=== PATIENT | female | born 1985 | race Caucasian/White ===

== ENCOUNTER 2023-04-04 07:34 | Emergency (ER) | payer OTHER ==
[2023-04-04] MEDS ORDERED: Sodium Chloride 0.9% 10 ML Syringe FLUSH PRN (08:13)
[2023-04-04] MEDS ORDERED: Bacitracin Oint 1 GM U/D Packet TOP ONE (08:15)
[2023-04-04] MEDS ORDERED: Diphtheria,Pertussis(Acell),Tetanus Vaccine 0.5 ML Syringe IM ONE (08:15)
[2023-04-04] MEDS ORDERED: Sodium Chloride 0.9% 1,000 ML IV ONE (08:15)
[2023-04-04 08:29] LABS: BASOPHILS PERCENT AUTO 0.3 % (0.0-1.0); EOSINOPHILS PERCENT AUTO 3.9 % (1.0-3.0); HEMATOCRIT 41.3 % (37.0-47.0); HEMOGLOBIN 14.1 g/dL (12.0-16.0); LYMPHOCYTES PERCENT AUTO 28.6 % (20.5-50.1); MEAN CORPUSCULAR HEMOGLOBIN 32.8 pg (27.0-34.0); MEAN CORPUSCULAR HGB CONC 34.1 g/dL (33.0-35.0); MONOCYTES PERCENT AUTO 6.3 % (2-8); NEUTROPHILS PERCENT AUTO 60.9 % (42.2-75.2); PLATELET COUNT,PLT 186 10^3/uL (150-450); WHITE BLOOD CELL COUNT,WBC 7.7 10^3/uL (5.0-10.0)
[2023-04-04 08:49] LABS: HCG QUALITATIVE,SERUM NEGATIVE (NEGATIVE)
[2023-04-04 08:57] LABS: A/G RATIO 1.1; ALANINE AMINOTRANSFERASE,ALT 20 U/L (14-59); ALBUMIN 3.4 g/dL (3.4-5.0); ALKALINE PHOSPHATASE 71 U/L (46-116); ANION GAP 13.9 mEq/L (7-13); ASPARTATE AMNIOTRANSFERASE,AST 12 U/L (15-37); BILIRUBIN TOTAL 0.2 mg/dL (0.2-1.0); BLOOD UREA NITROGEN,BUN 17 mg/dL (7-18); BUN/CREATININE RATIO 18.5 (No establ ref range); CALCIUM 8.6 mg/dL (8.5-10.1); CARBON DIOXIDE,CO2 25 mmol/L (21-32); CHLORIDE,CL 104 mmol/L (98-107); CREATINE KINASE,CK 78 U/L (16-191); CREATININE 0.92 mg/dL (0.55-1.02); EST CRCL DRUG DOSING (CG) 70.89 mL/min; GLUCOSE RANDOM 100 mg/dL (70-99); POTASSIUM,K 3.9 mmol/L (3.5-5.1); PROTEIN TOTAL,TP 6.6 g/dL (6.4-8.2); SODIUM,NA 139 mmol/L (136-145)
[2023-04-04 09:00] LABS: ESTIMATED GFR 81 mL/min (>=60)
[2023-04-04] MEDS ORDERED: Ketorolac 30 MG/ML SDV IVPUSH ONE (09:02)
[2023-04-04 09:26] LABS: APPEARANCE,URINE CLEAR (CLEAR); BILIRUBIN,URINE NEGATIVE (NEGATIVE); COLOR,URINE YELLOW (YELLOW); GLUCOSE,URINE NEGATIVE (NEGATIVE); KETONES,URINE NEGATIVE (NEGATIVE); LEUKOCYTE ESTERASE,URINE TRACE (NEGATIVE); NITRITE,URINE NEGATIVE (NEGATIVE); OCCULT BLOOD,URINE TRACE-INTACT (NEGATIVE); PROTEIN,URINE NEGATIVE (NEGATIVE); UROBILINOGEN,URINE 0.2 mg/dL (0.2-1.0)
[2023-04-04 09:40] LABS: BACTERIA,URINE FEW /HPF (0-FEW/HPF); EPITHELIAL CELLS,URINE FEW /HPF (NOT SEEN); MUCUS,URINE MODERATE /LPF (NOT SEEN); RBC,URINE 0-5 /HPF (0-5)
== END 2023-04-04 09:48 | disposition home or self-care (01) ==
LOC: DL.ED 07:34
DX: G40.909 Epilepsy, unspecified, not intractable, without status epilepticus (principal); S00.81XA Abrasion of other part of head, initial encounter; E86.0 Dehydration; Z91.018 Allergy to other foods; Z23 Encounter for immunization; W18.09XA Striking against other object with subsequent fall, initial encounter
CPT/HCPCS: 36415; 70450; 80053; 80164; 81001; 82550; 83735; 84703; 85025; 87086; 90471; 90715; 96361; 96374; 99284; A9270; J1885; J7030; 99283; J3490

== ENCOUNTER 2023-11-27 14:44 | Emergency (ER) | payer SELFPAY ==
[2023-11-27 16:14] LABS: CORONAVIRUS COVID-19 NAA NEGATIVE (NEGATIVE); INFLUENZA A NAA NEGATIVE (NEGATIVE); INFLUENZA B NAA NEGATIVE (NEGATIVE)
[2023-11-27 16:32] LABS: RESPIRATORY SYNCYTIAL VIR NAA POSITIVE (NEGATIVE)
[2023-11-27] MEDS: Acetaminophen 500 MG Tab PO ONE (17:01)
[2023-11-27] MEDS: Ibuprofen 400 MG Tab PO ONE (17:01)
== END 2023-11-27 17:08 | disposition home or self-care (01) ==
LOC: DL.ED 14:44
DX: J12.1 Respiratory syncytial virus pneumonia (principal); Z91.018 Allergy to other foods; Z79.899 Other long term (current) drug therapy
CPT/HCPCS: 0241U; 71046; 99283; 99284; A9270

== ENCOUNTER 2025-05-24 19:34 | Emergency (ER) | payer OTHER ==
[2025-05-24] MEDS: Ondansetron 4 MG Tab.DIS PO ONE (19:57)
[2025-05-24] MEDS ORDERED: Take Home: Cyclobenzaprine 10 MG Tab, 4 Tab Pack ONE (21:32)
[2025-05-24] MEDS: Take Home: Cyclobenzaprine 10 MG Tab, 4 Tab Pack PO ONE (21:40)
[2025-05-24] MEDS: Ondansetron 4 MG Tab.DIS ONE (21:40)
[2025-05-24] MEDS: Take Home: Ondansetron 4 MG Tab.DIS, 5 Tab Pack PO ONE (21:40)
== END 2025-05-24 21:43 | disposition home or self-care (01) ==
LOC: DL.ED 19:34
DX: S06.0X0A Concussion without loss of consciousness, initial encounter (principal); Z79.899 Other long term (current) drug therapy; Z91.030 Bee allergy status; Z90.49 Acquired absence of other specified parts of digestive tract; V89.2XXA Person injured in unspecified motor-vehicle accident, traffic, initial encounter
CPT/HCPCS: 70450; 99283; 99284; A9270; Q0162